=== PATIENT | female | born 1985 | race Caucasian/White ===

== ENCOUNTER → 2022-12-31 | Emergency (ER) | payer OTHER ==
[~2022-12-31] VITALS: Ht 160 cm; Wt 49.9 kg
--- NOTE | 2022-12-31 09:41 | NUR ---
Pt in bed. Alert and oriented times 4. Able to make needs known. States she fell one month ago and her knees have still been in pain from the fall. Addendum: 12/31/22 at 0942 by [email or web address] Pt came in and layed in bed. Alert and oriented times 4. Constant pain 4/10 for one month. Breathing even and unlabored. Call light within normal reach.
[2022-12-31 11:46] VITALS: BP 112/68
== END | disposition home or self-care (01) ==
LOC: ER 09:34
DX: M25.562 Pain in left knee (principal); M25.561 Pain in right knee; Z88.8 Allergy status to other drugs, medicaments and biological substances; Z60.2 Problems related to living alone
CPT/HCPCS: 73564-TC